=== PATIENT | male | born 1955 | race Caucasian/White ===

== ENCOUNTER 2019-09-05 08:49 | Emergency (ER) | payer MEDICARE, OTHER ==
[~2019-09-05 08:49] MED LIST: ASPIRIN 81 MG CHEW TAB ONE
[2019-09-05] MEDS ORDERED: 0.9 % SODIUM CHLORIDE 1,000 ML IV ONE (08:52)
[2019-09-05] MEDS ORDERED: ASPIRIN 81 MG CHEW TAB PO ONE (08:52)
[2019-09-05 08:56] LABS: eGFR (Non-African) 26
--- NOTE | 2019-09-05 08:56 | ED Physician Documentation ---
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 Pt has had a previous TN with 4-vessel bypass in 2008. Pt had a stress test one year ago that was wnl. Pt became hypotensive in OR with sbp=80. Pt was given IVF, started in OR. Pt had been ill over the weekend with diarrhea.) - ROS CONST: weakness EYES/ENT: none CVS/RESP: shortness of breath MS/SKIN/LYMPH: other (diaphoresis) - PAST HX Past History: AMI (2006) Allergies/Adverse Reactions: Allergies Allergy/AdvReac Type Severity Reaction Status Date / Time No Known Allergies Allergy Unverified 09/05/19 09:05 Home Medications: Ambulatory Orders Medication Instructions Recorded Olmesartan Medoxomil [Benicar] 5 mg PO 09/05/19 Rosuvastatin Calcium [Crestor] 10 mg PO 09/05/19 Ubidecarenone [Co Q-10] 10 mg PO 09/05/19 - SOCIAL HX Smoking History: other (unknown if ever smoked) - FAMILY HX Family History: No - REVIEWED ASSESSMENTS Nursing Assessment Reviewed: Yes Vitals Reviewed: Yes Progress - Progress Progress: Home medications: Benicar, Crestor, Co Q10 CXR: No nataly consolidation or effusion. ASA 324 po NS 1 L IVF x 2 LR 1 L @ 100 cc/hr. BP 80/40 --> BP107/57 HR 48 --> 66 Transfer to [facility], Dr. Connolly. - EKG/XRAY/CT EKG: NSR (HR=68; LAD; RBBB; supraventricular premature beats.) - Additional EKG/XRAY/Consults EKG #2: NSR (no change from previous (above)) ED Results Lab/Radiology - Orders Orders: ED Orders Category Date Time Status Continuous EKG monitoring Q30M Care 09/05/19 08:52 Ordered Continuous Pulse Oximetry Q30M Care 09/05/19 08:[address] IV Lock 1T Care 09/05/19 08:52 Ordered CHEST 1VIEW [RAD] Stat Exams 11/25/19 Ordered CBC/PLATELET/DIFF Stat Lab 09/05/19 08:52 Ordered CMP Stat Lab 09/05/19 08:52 Ordered D DIMER Stat Lab 09/05/19 Ordered NT BNP Stat Lab 09/05/19 Ordered TROPONIN I Stat Lab 09/05/19 08:52 Ordered Aspirin [Taz] Med 09/05/19 08:49 Discontinued 324 mg .ROUTE .STK-MED ONE Aspirin [Taz] Med 09/05/19 08:52 Once 324 mg PO NOW ONE Oxygen Daily Oxygen 09/05/19 09:00 Ordered EKG WITH COMPARISON Stat Ther 09/05/19 08:52 Ordered General Adult Physical Exam - PHYSICAL EXAM GENERAL APPEARANCE: moderate distress EENT: pharynx normal NECK: normal inspection, supple RESPIRATORY: no resp distress, chest non-tender, breath sounds normal CVS: reg rate & rhythm, heart sounds normal, other (distant heart sounds) ABDOMEN: soft, no organomegaly, normal bowel sounds BACK: normal inspection, no CVA tenderness SKIN: warm/dry, pallor EXTREMITIES: non-tender, normal range of motion, no evidence of injury NEURO: oriented X3, motor nml, sensation nml Discharge Clincal Impression: near syncope, hypotension, bradycardia, Referrals: Primary Doctor,No [Primary Care Provider] - Condition: Stable Disposition: 02 XFER SHT-TRM HOSP Decision to Admit: NO Decision Time: 09:45
[2019-09-05] MEDS ORDERED: GUM MASTIC/STORAX/MSAL/ALCOHOL 1 EACH DROPERETTE TP ONE (08:57)
[2019-09-05] MEDS ORDERED: LACTATED RINGERS 1,000 ML IV ONE ×2 (09:04→09:18)
--- NOTE | 2019-09-05 09:10 | Diagnostic Imaging Report ---
PATIENT MR#: [id number] PATIENT PATIENT NAME: AZALEA WICK DATE OF : 1955 REFERRING PHYSICIAN: Peter Benavidez EXAM DATE: 09/05/2019 ACCESSION NUMBER: [id number] EXAM DESCRIPTION: CHEST 1VIEW Exam: AP chest. History: Chest pain. No previous studies are available for comparison. Lung mays are well aerated without nataly consolidation or effusion. Cardiac silhouette is prominen t. Sternotomy wires indicate previous thoracotomy. Status post ORIF mid clavicular fracture is noted. Impression: No nataly consolidation or effusion. Read by: Dr. Serafin Albert Transcribed by: Transcribed Date: Electronically signed by: Dr. Serafin Albert Date signed: 09/05/2019 9:09:26 AM
[2019-09-05 09:22] LABS: BASOPHILS % 0.5 % (0.0-1.5); NEUTROPHILS # 11.8 # k/uL (1.4-7.7); SEGMENTED NEUTROPHILS % 74 % (39-79)
[2019-09-05] MEDS ORDERED: LACTATED RINGERS 1,000 ML IV SCH (10:00)
[2019-09-05 12:10] VITALS: BP 99/53
== END 2019-09-05 10:20 | disposition short-term general hospital (02) ==
LOC: ED 08:49
DX: I95.9 Hypotension, unspecified (principal); R00.1 Bradycardia, unspecified; R55 Syncope and collapse
CPT/HCPCS: 36415; 71045; 80053; 83605; 83880; 84484; 85025; 85379; 93005; 96361; 96374; 96376; 99282; 99284; J7030; J7120; S1016